=== PATIENT | female | born 1970 | race Caucasian/White ===

== ENCOUNTER 2017-07-06 18:01 | Emergency (ER) | payer OTHER ==
[2017-07-06 19:06] VITALS: BP 130/69
--- NOTE | 2017-07-06 20:07 | UC ---
Lower Extremity/Ankle HPI - HPI Summary HPI Summary: Pain in the ball of R foot starting over a week ago while she was in [place]. Pain worsens through the day, worsens with activity. Pain was bad enough to make pt alter activities. Typically walks 10,000-14,000 steps per day , has only been at [id number] since pain started. Feels a little better than last week, but still sore. - History of Current Complaint Chief Complaint: UCLowerExtremity Stated Complaint: RT FOOT Hx Obtained From: Patient Hx Last Menstrual Period: 06/15/17 ?: No Onset/Duration: Gradual Onset, Lasting Days Severity Initially: Moderate Severity Currently: Mild Aggravating Factor(s): Standing, Ambulation Alleviating Factor(s): Rest Able to Bear Weight: Yes - Allergies/Home Medications Allergies/Adverse Reactions: Allergies Allergy/AdvReac Type Severity Reaction Status Date / Time Epinephrine Allergy Tachycardia Verified 07/06/17 19:06 Sulfa Antibiotics Allergy Stomach Verified 07/06/17 19:06 Cramps Home Medications: Home Medications Homeopathic Products [Zicam Allergy Relief] 1 gel NA Q3H PRN 07/06/17 [History Confirmed 07/06/17] Lidocaine [Aspercreme W/Lidocaine] 4 % EX TID PRN 07/06/17 [History Confirmed ] PMH/Surg Hx/FS Hx/Imm Hx Respiratory History: Asthma - Surgical History Surgical History: Yes Surgery Procedure, Year, and Place: cholecystectomy - Family History Known Family History: Positive: None - Social History Occupation: Employed Full-time Alcohol Use: Occasionally Substance Use Type: None Smoking Status (MU): Never Smoked Tobacco Review of Systems Constitutional: Negative Skin: Negative Eyes: Negative ENT: Negative Respiratory: Negative Cardiovascular: Negative Gastrointestinal: Negative Genitourinary: Negative Motor: Negative Neurovascular: Negative Musculoskeletal: Arthralgia - R foot Neurological: Negative Psychological: Negative Is Patient Immunocompromised?: No All Other Systems Reviewed And Are Negative: Yes Physical Exam Triage Information Reviewed: Yes Appearance: Well-Appearing, No Pain Distress, Well-Nourished Vital Signs: Initial Vital Signs Temp 99.3 F 07/06/17 18:58 Pulse 67 07/06/17 18:58 Resp 20 07/06/17 18:58 BP 130/69 07/06/17 18:58 Pulse Ox 98 07/06/17 18:58 Vital Signs Reviewed: Yes Eye Exam: Normal Eyes: Positive: Conjunctiva Clear ENT Exam: Normal ENT: Positive: Normal ENT inspection, Hearing grossly normal, Pharynx normal, TM dull Dental Exam: Normal Neck exam: Normal Neck: Positive: Supple, Nontender, No Lymphadenopathy Respiratory Exam: Normal Respiratory: Positive: Chest non-tender, Lungs clear, Normal breath sounds, No respiratory distress, No accessory muscle use Cardiovascular Exam: Normal Cardiovascular: Positive: RRR, No Murmur Musculoskeletal Exam: Other - Bony tenderness mostly over 3rd MT Musculoskeletal: Positive: Strength Intact, ROM Intact Neurological Exam: Normal Psychological Exam: Normal Skin Exam: Normal Lower Extremity Course/Dx - Differential Dx/Diagnosis Provider Diagnoses: R metatarsalgia Discharge - Discharge Plan Condition: Stable Disposition: HOME Referrals: Joshua López MD [Primary Care Provider] - Mitchell Marroquin DPM [Doctor of Podiatric Medicine] - 2 Weeks Additional Instructions: Keep your activity low while your pain is still there. I recommend you wear stable, lace-up shoes with good insoles. You can also put gel insoles in your shoes (or at least metatarsal pads) to help.
--- NOTE | 2017-07-06 20:24 | RAD ---
Indication: Distal RIGHT second through fourth metatarsal pain following extensive walking. Comparison: No relevant prior exams available on the [facility] PACS for comparison. Technique: AP, lateral, and oblique views RIGHT foot. Report: Negative for fracture or radiographic stigmata of stress reaction. Normal articular alignment throughout. Minimal osteophytosis and joint space narrowing at the first metatarsal phalangeal joint. Mild soft tissue swelling about the forefoot. IMPRESSION: Negative for fracture or radiographic stigmata of stress reaction.
== END 2017-07-06 20:28 | disposition home or self-care (01) ==
LOC: UCCORT 18:01
DX: M77.41 Metatarsalgia, right foot (principal); J45.909 Unspecified asthma, uncomplicated; Z88.2 Allergy status to sulfonamides
CPT/HCPCS: 99211; G0463

== ENCOUNTER 2017-10-16 20:27 | Emergency (ER) | payer OTHER ==
[2017-10-16 20:56] VITALS: BP 149/75
[2017-10-16] MEDS ORDERED: Albuterol/Ipratropium NEB.SOL* Albuterol 2.5 MG/Ipratropium 0.5 MG 3 ML INH ONE (21:17)
--- NOTE | 2017-10-16 21:59 | ED ---
Influenza-Like Illness - HPI Summary HPI Summary: Pt here w/ headache, nasal congestion, PND, ear pressure, fever, chills, and 1 x loose stool. Has asthma and has not been using albuterol or symbicort as she read one of them was recalled. Denies chest pain or shortness of breath but chest is tight from coughing. Denies vomiting - drinking fluids but has reduced appetite. Has not taken ibuprofen or acetaminophen today - has a "PM" med she uses at nighttime. Also uses loratadine for PND/allergies however she has not taken past couple of days. - History of Current Complaint Chief Complaint: UCGeneralIllness Time Seen by Provider: 10/16/17 21:01 Hx Obtained From: Patient - Allergy/Home Medications Allergies/Adverse Reactions: Allergies Allergy/AdvReac Type Severity Reaction Status Date / Time sulfamethoxazole AdvReac Intermediate GI cramps Verified 10/16/17 20:58 [From Bactrim] trimethoprim [From Bactrim] AdvReac Intermediate GI cramps Verified 10/16/17 20: 58 epinephrine AdvReac Tachycardia Verified 10/16/17 20:58 Home Medications: Home Medications Red Inhaler 10/16/17 [History] PMH/Surg Hx/FS Hx/Imm Hx Previously Healthy: Yes Endocrine/Hematology History: Denies: Hx Diabetes, Hx Thyroid Disease Cardiovascular History: Denies: Hx Hypertension Respiratory History: Reports: Hx Asthma Denies: Hx Chronic Obstructive Pulmonary Disease (COPD) GI History: Denies: Hx Ulcer - Cancer History Hx Chemotherapy: No Hx Radiation Therapy: No - Surgical History Surgery Procedure, Year, and Place: cholecystectomy Infectious Disease History: No Infectious Disease History: Denies: Hx Clostridium Difficile, Hx Hepatitis, Hx Human Immunodeficiency Virus (HIV), Hx of Known/Suspected MRSA, Hx Shingles, Hx Tuberculosis, Hx Known/ Suspected VRE, Hx Known/Suspected VRSA, History Other Infectious Disease, Traveled Outside the [place] in Last 30 Days - Family History Known Family History: Positive: None - Social History Occupation: Employed Full-time Lives: With Family Alcohol Use: Occasionally Hx Substance Use: No Substance Use Type: Reports: None Hx Tobacco Use: No Smoking Status (MU): Never Smoked Tobacco Review of Systems Positive: Fever, Chills, Fatigue Positive: Sore Throat, Ear Ache, Nasal Discharge Negative: Chest Pain Positive: Cough Gastrointestinal: Negative Positive: no symptoms reported Positive: Arthralgia, Myalgia. Negative: Decreased ROM Skin: Negative Negative: Rash Positive: Headache. Negative: Weakness, Paresthesia, Numbness, Syncope, Slurred Speech Positive: Anxious All Other Systems Reviewed And Are Negative: Yes Physical Exam Triage Information Reviewed: Yes Vital Signs On Initial Exam: Initial Vitals Temp Pulse Resp BP Pulse Ox 101.4 F 101 21 149/75 96 10/16/17 20:53 10/16/17 20:53 10/16/17 20:53 10/16/17 20:53 10/16/17 20:53 Vital Signs Reviewed: Yes Appearance: Positive: Well-Appearing - pt wearing mask, anxious, No Pain Distress, Obese Skin: Positive: Warm, Skin Color Reflects Adequate Perfusion - macular erythema over Lt side of neck/UE (appears to be brad), Dry Head/Face: Positive: Normal Head/Face Inspection Eyes: Positive: Normal, EOMI, Conjunctiva Clear. Negative: Conjunctiva Inflammed, Discharge ENT: Positive: Hearing grossly normal, Pharynx normal - cobblestoning, Nasal congestion, TMs normal, Uvula midline. Negative: Nasal drainage, Tonsillar swelling, Tonsillar exudate, Trismus, Muffled voice, Hoarse voice, Sinus tenderness Neck: Positive: Supple, Nontender, No Lymphadenopathy Respiratory/Lung Sounds: Positive: Clear to Auscultation, Breath Sounds Present. Negative: Rales, Rhonchi, Stridor, Tracheal Deviation, Wheezes, Unable to speak in full sentences, Fatigue Cardiovascular: Positive: Normal, RRR, Pulses are Symmetrical in both Upper and Lower Extremities, S1, S2. Negative: Murmur, Rub Abdomen Description: Positive: Nontender, No Organomegaly, Soft Bowel Sounds: Positive: Present Musculoskeletal: Positive: Normal, Strength/ROM Intact Neurological: Positive: Normal, Sensory/Motor Intact, Alert, Oriented to Person Place, Time, CN Intact II-III Psychiatric: Positive: Anxious Diagnostics - Vital Signs Vital Signs Temp Pulse Resp BP Pulse Ox 10/16/17 20:53 101.4 F 101 21 149/75 96 - Laboratory Lab Results: Lab Results 10/16/17 Range/Units 21:00 Influenza A (Rapid) Negative (Negative) Influenza B (Rapid) Negative (Negative) Lab Statement: Any lab studies that have been ordered have been reviewed, and results considered in the medical decision making process. Re-Evaluation - Re-Evaluation First Eval Change: Improved - breating easier after duoneb - chest still clear Flu Symptom Course/Dx - Course Course Of Treatment: Flu (-), viral URI w/ cough - encouraged use of ventolin w / symbicort as directed. Supportive care otherwise. Follow-up with PCP on Thursday - if worse, go to ED. - Diagnoses Provider Diagnoses: Viral URI with cough Discharge - Discharge Plan Condition: Stable Disposition: HOME Patient Education Materials: Upper Respiratory Infection (ED), Acute Bronchitis (ED) Referrals: No Primary Care Phys,NOPCP [Primary Care Provider] - [facility] [Outside] Additional Instructions: Restart your albuterol and symbicort Implement the following to aid in symptoms: Perform nasal wash/netti pot 2 x day with 8 ounces of warm water + 1/4 teaspoon of salt or saline nasal spray as needed Perform throat gargles with warm salt water as needed Drink 60+ ounces of water daily Sleep 8+ hours per night Avoid Dairy and sugar Drink hot herbal/decaf tea with lemon & honey Drink chicken broth (preferably organic, free range chicken) Use a humidifier in your house, but especially near bed at night. You may also keep home temperature at 68F or less. Try a facial steam with or without eucalyptus essential oil or Johnathan's vapor rub for decongestion. Cough drops You may try delsym cough syrup to suppress cough Avoid smoke, candles, perfumes/colonge, air fresheners, scented lotions, etc Consider taking Vitamin D3 5,000iu and Vitamin C 1,000mg every day during illness Follow-up with PCP next week if symptoms persist. If worse, go to ED.
== END 2017-10-16 22:11 | disposition home or self-care (01) ==
LOC: UCCORT 20:27
DX: J06.9 Acute upper respiratory infection, unspecified (principal); R05 Cough; J45.909 Unspecified asthma, uncomplicated; Z88.1 Allergy status to other antibiotic agents; Z88.8 Allergy status to other drugs, medicaments and biological substances
CPT/HCPCS: 87502; 99211; A9270-GY; G0463